=== PATIENT | female | born 1975 | race Caucasian/White ===

== ENCOUNTER 2017-09-03 22:49 | Emergency (ER) | payer BC ==
--- NOTE | 2017-09-03 23:45 | ED Physician Chart ---
ED Chief Complaint/HPI - Patient Information Date Seen:: 09/03/17 Time Seen:: 23:25 Chief Complaint:: congestion, dry cough History of Present Illness:: location: general quality: cough, congestion severity: mild duration: 5 days context: went to [facility] ER couple of days after illness started. no fever, some nasal congestion, dry cough. no vomiting, no diarrhea. no rash. also complains of right side cheek ear pain. no discharge. no loss of hearing. no bleeding, no chest pain, no SOB. mod factors: none assoc s/s: none hx from pt. Allergies:: Allergies Allergy/AdvReac Type Severity Reaction Status Date / Time No Known Allergies Allergy Verified 09/03/17 23:38 Vitals:: Vital Signs - 8 hr 09/03/17 22:55 Temp 98.7 F HR 80 RR 20 BP 105/74 O2 Sat % 98 Historian:: Patient Review:: Nurse's Note Reviewed ED Review of Systems - Review of Systems General/Constitutional: No fever, No chills, No weight loss, No weakness, No diaphoresis, No edema, No loss of appetite Skin: No skin lesions, No rash, No bruising Head: No headache, No light-headedness Eyes: No loss of vision, No pain, No diplopia ENT: No earache, Nasal drainage, No sore throat, No tinnitus Neck: No neck pain, No swelling, No thyromegaly, No stiffness, No mass noted Cardio Vascular: No chest pain, No palpitations, No PND, No orthopnea, No edema Pulmonary: No SOB, Cough, No sputum, No wheezing GI: No nausea, No vomiting, No diarrhea, No pain, No melena, No hematochezia, No constipation, No hematemesis G/U: No dysuria, No frequency, No hematuria Musculoskeletal: No bone or joint pain, No back pain, No muscle pain Endocrine: No polyuria, No polydipsia Psychiatric: No prior psych history, No depression, No anxiety, No suicidal ideation Hematopoietic: No bruising, No lymphadenopathy Allergic/Immuno: No urticaria, No angioedema Neurological: No syncope, No focal symptoms, No weakness, No paresthesia, No headache, No seizure, No dizziness, No confusion, No vertigo ED Past Medical History - Past Medical History Past Medical History: No significant medical hx Family History: None Social History: Non Smoker, No Alcohol, No Drug Use, Psychiatricy History: None Medication: None Family Medical History - Family Member Mother History Unknown: Yes ED Physical Exam - Physical Examination General/Constitutional: Awake, Well-developed, well-nourished, Alert, No distress, GCS 15, Non-toxic appearing, Ambulatory Head: Atraumatic Eyes: Lids, conjuctiva normal, PERRL, EOMI Skin: Nl inspection, No skin lesions, Well hydrated, No lymphadenopathy ENMT: External ears, nose nl, TM canals nl (right side acoustic canal with cerumen, TM is partially visible, normal coloration, no erythema, not distended. no bleeding), Nasal exam nl, Lips, teeth, gums nl, Oropharynx nl, Tonsils nl Neck: Nontender, Full ROM w/o pain, No nuchal rigidity, No bruit, No mass, No stridor (no adenopathy) Respiratory: Nl effort/Exclusion, Clear to Auscultation, No Wheeze/Rhonchi/Rales Cardio Vascular: RRR, No murmur, gallop, rubs GI: No tenderness/rebounding/guarding, Normal BS's, Nondistended : No CVA tenderness Extremities: No tenderness or effusion, Full ROM, normal strength in all extremities, No edema, Normal digits & nails Neuro/Psych: Alert/oriented, Normal sensory exam, Judgement/insight normal, Mood normal, Normal gait, No focal deficits Misc: Normal back, No paraspinal tenderness ED Assessment - Assessment General Assessment: pt with symptoms of URI has been to local facility ER, has been given antibiotics and cough medication. was swabbed for influenza and does not have influenza hx from pt. ED Septic Shock - . Is Septic Shock (SBP<90, OR Lactate>4 mmol\L) present?: No - <6hrs of presentation: Vital Signs: Vital Signs - 8 hr 09/03/17 22:55 Temp 98.7 F HR 80 RR 20 BP 105/74 O2 Sat % 98 Assessment of Lungs: Lung CTA bilateral Assessment of Heart: RRR Capillary refill evaluation: Capillary refill < 2 secs Skin Exam: Warm, Dry, Good Turgur ED Reassessment (Disposition) - Reassessment Reassessment:: pt in stable condition while in ER. some mild dry cough. no hypoxia. no cyanosis, no vomiting dry cough is mild intensity, witnessed by physician during exam. Reassessment Condition:: Unchanged - Diagnosis Diagnosis:: respiratory infection, viral - Aftercare/Follow up Instructions Medication Prescribed:: continue the medications you were prescribed during this illness. - Patient Disposition Discharge/Transfer:: Home Time:: 23:45 Condition at Disposition:: Stable
== END 2017-09-03 23:45 | disposition home or self-care (01) ==
LOC: ER 22:49
DX: J06.9 Acute upper respiratory infection, unspecified (principal)
CPT/HCPCS: Z7502

== ENCOUNTER 2017-11-03 11:32 | Emergency (ER) | payer BC ==
[2017-11-03] MEDS ORDERED: cefTRIAXone 2 GM in Sodium Chloride 0.9% 100 ML IV ONE (12:11)
[2017-11-03] MEDS ORDERED: Sodium Chloride 0.9% 1,000 ML IV ONE (12:11)
--- NOTE | 2017-11-03 12:20 | ED Physician Chart ---
ED Chief Complaint/HPI - Patient Information Date Seen:: 11/03/17 Time Seen:: 12:15 Chief Complaint:: malaise body aches for one wk History of Present Illness:: 42 yr old female not feeling well for one wk feels muscle aches chills abd pain no cp no vomiting or diarhea no sig past med hx Allergies:: Allergies Allergy/AdvReac Type Severity Reaction Status Date / Time No Known Allergies Allergy Verified 09/03/17 23:38 Vitals:: Vital Signs - 8 hr 11/03/17 11:40 Temp 100.0 F HR 99 RR 22 BP 142/80 O2 Sat % 98 Historian:: Patient ED Review of Systems - Review of Systems General/Constitutional: Chills, Weakness Skin: No skin lesions, No rash, No bruising Head: No headache, No light-headedness Eyes: No loss of vision, No pain, No diplopia ENT: No earache, No nasal drainage, No sore throat, No tinnitus Neck: No neck pain, No swelling, No thyromegaly, No stiffness, No mass noted Cardio Vascular: No chest pain, No palpitations, No PND, No orthopnea, No edema Pulmonary: No SOB, No cough, No sputum, No wheezing GI: Pain G/U: No dysuria, No frequency, No hematuria Musculoskeletal: No bone or joint pain, No back pain, No muscle pain Endocrine: No polyuria, No polydipsia Psychiatric: No prior psych history, No depression, No anxiety, No suicidal ideation Hematopoietic: No bruising, No lymphadenopathy Allergic/Immuno: No urticaria, No angioedema Neurological: No syncope, No focal symptoms, No weakness, No paresthesia, No headache, No seizure, No dizziness, No confusion, No vertigo ED Past Medical History - Past Medical History Past Medical History: No significant medical hx Family Medical History - Family Member Mother History Unknown: Yes Ethnicity: Living Status: Still Living Hx Family Hypertension: Yes ED Physical Exam - Physical Examination General/Constitutional: Awake, Well-developed, well-nourished, Alert, No distress, GCS 15, Non-toxic appearing, Ambulatory Head: Atraumatic Eyes: Lids, conjuctiva normal, PERRL, EOMI Skin: Nl inspection, No rash, No skin lesions, No ecchymosis, Well hydrated, No lymphadenopathy ENMT: External ears, nose nl, Nasal exam nl, Lips, teeth, gums nl Neck: Nontender, Full ROM w/o pain, No JVD, No nuchal rigidity, No bruit, No mass, No stridor Respiratory: Nl effort/Exclusion, Clear to Auscultation, No Wheeze/Rhonchi/Rales Cardio Vascular: RRR, No murmur, gallop, rubs, NL S1 S2 GI: No tenderness/rebounding/guarding, No organomegaly, No hernia, Normal BS's, Nondistended, No mass/bruits, No McBurney tenderness Other GI comments:: mild suprapubic tend no perioteneal signs or rebound : No CVA tenderness Extremities: No tenderness or effusion, Full ROM, normal strength in all extremities, No edema, Normal digits & nails Neuro/Psych: Alert/oriented, DTR's symmetric, Normal sensory exam, Normal motor strength, Judgement/insight normal, Mood normal, Normal gait, No focal deficits Misc: Normal back, No paraspinal tenderness ED Assessment - Assessment General Assessment: abd pain chills ED Septic Shock - . Is Septic Shock (SBP<90, OR Lactate>4 mmol\L) present?: No - <6hrs of presentation: Vital Signs: Vital Signs - 8 hr 06//18 11:40 Temp 100.0 F HR 99 RR 22 BP 142/80 O2 Sat % 98 ED Reassessment (Disposition) - Reassessment Reassessment:: pt given fluids NS AND ROCEPHIN AND CT ABD PELVIS ORDERED - Diagnosis Diagnosis:: abd pain chills malaise - Aftercare/Follow up Instructions Aftercare/Follow-Up Instructions:: Counseled pt regarding lab results/diagnosis & need follow up - Patient Disposition Discharge/Transfer:: Home
[2017-11-03 12:43] LABS: % BASOPHILS 0.8 % (0.0-2.0); % EOSINOPHILS 0.3 % (0.0-5.0); % LYMPHOCYTES 14.2 % (20.0-50.0); % MONOCYTES 10.3 % (2.0-10.0); % NEUTROPHILS 74.4 % (40.0-80.0); HEMOGLOBIN 14.3 gm/dL (12-16); LYMPHOCYTE ABSOLUTE 0.5 Th/cmm (1.5-3.0); MEAN CELL VOLUME 92.4 fl (81-100); MEAN CORPUSCULAR HEMOGLOBIN 31.5 pg (27.0-31.0); MEAN CORPUSCULAR HGB CONC 34.1 pg (28.0-36.0); MEAN PLATELET VOLUME 8.2 fl; MONOCYTE ABSOLUTE 0.4 Th/cmm (0.3-1.0); NEUTROPHILE ABSOLUTE 2.5 Th/cmm (1.8-8.0); PLATELET COUNT 161 Th/cmm (150-400); RED BLOOD COUNT 4.54 Mil/cmm (3.80-5.10); RED CELL DISTRIBUTION WIDTH 12.1 % (11.5-20.0)
[2017-11-03 12:50] LABS: WHITE BLOOD COUNT 3.4 Th/cmm (4.8-10.8)
[2017-11-03 13:00] LABS: ALB/GLOB RATIO 1.1 (1.0-1.8); ALKALINE PHOSPHATASE 135 U/L (34-104); ANION GAP 11.3 (7.0-16.0); BILIRUBIN,TOTAL 0.7 mg/dL (0.3-1.0); BUN - UREA NITROGEN 9 mg/dL (7-25); CALCIUM SERUM 9.2 mg/dL (8.6-10.3); CARBON DIOXIDE 25.3 mEq/L (21.0-31.0); CHLORIDE 100 mEq/L (98-107); CREATININE - SERUM 0.8 mg/dL (0.6-1.2); GFR AFRICAN-AMERICAN > 60.0 ml/min (>90); GFR NON AFRICAN-AMERICAN > 60.0 ml/min; GLUCOSE 90 mg/dL (70-105); POTASSIUM SERUM 3.6 mEq/L (3.5-5.1); SGOT 104 U/L (13-39); SGPT/ALT 170 U/L (7-52); SODIUM SERUM 133 mEq/L (136-145); TOTAL PROTEIN,SERUM 7.5 gm/dL (6.0-8.3)
[2017-11-03 14:09] LABS: URINE MICROSCOPIC INDICATED? YES; URINE SOURCE CLEAN C
[2017-11-03 14:11] LABS: URINE BLOOD MODERATE (NEGATIVE); URINE GLUCOSE (UA) NEGATIVE (NEGATIVE); URINE KETONE TRACE mg/dL (NEGATIVE); URINE LEUKOCYTE ESTERASE LARGE (NEGATIVE); URINE NITRATE NEGATIVE (NEGATIVE); URINE PROTEIN TRACE mg/dL (NEGATIVE); URINE UROBILINOGEN 0.2 E.U./dL (0.2 - 1.0)
[2017-11-03 14:17] LABS: URINE BILIRUBIN NEGATIVE (NEGATIVE); URINE CLARITY CLOUDY (CLEAR); URINE COLOR YELLOW
[2017-11-03 14:20] LABS: URINE BACTERIA FEW /hpf (NONE SEEN); URINE EPITHELIAL CELLS FEW /lpf (FEW); URINE WBC 25-50 /hpf (0-5)
--- NOTE | 2017-11-04 08:37 | Diagnostic Imaging Report ---
CHEST X-RAY: AP view INDICATION: Shortness of breath COMPARISON: 06/07/2015 FINDINGS: Mild increased right basal lung markings are noted. Left basal subsegmental atelectasis is noted. There is no focal consolidation or pleural effusions The heart is normal in size. Degenerative changes of the spine are noted. IMPRESSION: Mild increased right basal lung markings which may be due to atelectasis versus less likely infiltrate, clinical correlation and follow-up is recommended. Left basal subsegmental atelectasis.
--- NOTE | 2017-11-04 08:43 | Diagnostic Imaging Report ---
CT Chest without IV contrast HISTORY: Pneumonia, mass COMPARISON: Chest x-ray earlier the same day. Technique: Axial images were obtained from the base of the neck to the upper abdomen without IV contrast. Reconstructions were made. Total DLP 217 CTD I 17.2 Findings: Evaluation the mediastinum is limited due to lack of IV contrast. No evidence of mediastinal lymphadenopathy. No evidence of an aortic aneurysm. The heart size is normal. No pericardial effusion is identified. Evaluation of the lungs demonstrates an right basal infiltrates with 1.7 cm opacity along the right pleural border. Atelectatic changes of the lung bases are noted. No pleural effusions identified. Degenerative changes of the spine are noted. IMPRESSION: 1.7 cm opacity along the right pleural border with additional adjacent few smaller opacities. Findings may represent left lower lobe infiltrate/pneumonia. Underlying other mass lesions/neoplastic etiology cannot be excluded completely excluded. Recommend correlation with old exams, if available. Short-term follow-up after resolution of acute symptoms is recommended to ensure resolution and to exclude less likely neoplastic process Bibasal atelectatic changes. No pleural effusions.
--- NOTE | 2017-11-04 08:47 | Diagnostic Imaging Report ---
CT abdomen and pelvis without intravenous contrast Indication: Abdominal pain Comparison: Chest CT the same day, Technique: Axial images were obtained from the lung bases to the bilateral proximal femurs without IV contrast. Coronal reconstructions were made. total DLP: 452, CTDI 9 FINDINGS: Please refer to CT chest performed the same day for further findings of right basal infiltrates. Assessment of the solid organs is limited due to lack of IV contrast. No evidence of focal hepatic, splenic, lesions. Borderline prominent spleen is noted. No focal pancreatic or adrenal lesions. There is fullness of the right renal collecting system without evidence of steven hydronephrosis. No radiopaque renal stones identified. There is moderate stool throughout the colon. There is areas of mild bowel wall thickening with fatty infiltration of the colonic mucosa involving the ascending colon. There is no evidence of acute appendicitis. There is no evidence of free abdominal fluid or free abdominal air. Degenerative changes of the spine are noted. IMPRESSION: Mild bowel wall thickening and fatty infiltration involving the ascending colon. Findings may be due to chronic inflammatory process. Clinical correlation and follow up recommended No evidence of appendicitis No evidence of free abdominal fluid. Nonspecific fullness of the right renal collecting system without steven hydronephrosis. No radiopaque stones identified. Borderline prominent spleen.
== END 2017-11-03 16:07 | disposition home or self-care (01) ==
LOC: ER 11:32
DX: R53.81 Other malaise (principal); R10.30 Lower abdominal pain, unspecified; R68.83 Chills (without fever)
CPT/HCPCS: 99285; 96365; 71045; 71250; 74176; 36415; 83605; 85025; 87086; 81001; 81025; 80053; 87040 ×2; J0696; J7030; Z7610